=== PATIENT | female | born 1945 | race Hispanic/Latino ===

== ENCOUNTER 2022-05-01 08:50 | Day surgery (SDC) | payer MEDICARE ==
[2022-05-01] MEDS ORDERED: ASPIRIN 325 MG TAB PO ONE (09:48)
[2022-05-01] MEDS ORDERED: ASPIRIN EC 325 MG TAB PO ONE (09:48)
[2022-05-01 09:54] LABS: Basophils # (Auto) 0.1 K/mm3 (0.0-0.1); Basophils % (Auto) 0.8 % (0.0-1.8); Eosinophils # (Auto) 0.2 K/mm3 (0.0-0.4); Eosinophils % (Auto) 2.6 % (0.0-4.3); Hematocrit 35.2 % (30.3-42.9); Hemoglobin 12.5 gm/dl (10.1-14.3); Lymphocytes # (Auto) 1.5 K/mm3 (1.2-5.4); Lymphocytes % (Auto) 21.9 % (13.4-35.0); Mean Corpuscular HGB Conc 36 % (30-34); Mean Corpuscular Volume 88 fl (79-97); Monocytes # (Auto) 0.8 K/mm3 (0.0-0.8); Monocytes % (Auto) 11.5 % (0.0-7.3); Platelet Count 256 K/mm3 (140-440); Red Blood Count 3.99 M/mm3 (3.65-5.03); Red Cell Distribution Width 12.3 % (13.2-15.2)
[2022-05-01] MEDS: SODIUM CHLORIDE 0.9% 500 ML 500 ML IV SCH ×3 (09:55→11:30)
[2022-05-01] MEDS ORDERED: ASPIRIN 81 MG TAB CHEW PO SCH (10:00)
[2022-05-01 10:04] LABS: Calcium 9.9 mg/dL (8.4-10.2)
[2022-05-01 10:06] LABS: INR 0.96 (0.87-1.13)
[2022-05-01] MEDS ORDERED: HEPARIN 10,000 UNITS/10 ML VIAL ONE (10:51)
[2022-05-01] MEDS ORDERED: POTASSIUM CHLORIDE ER 20 MEQ TAB PO SCH (11:00)
[2022-05-01] MEDS: MIDAZOLAM 2 MG/2 ML INJ ONE ×2 (11:21→11:36)
[2022-05-01] MEDS: fentaNYL 100 MCG/2 ML INJ ONE ×3 (11:21→11:40)
[2022-05-01] MEDS: LIDOCAINE (1%) 10 MG/1 ML VIAL 20 ML MDV ONE ×3 (11:22→11:44)
[2022-05-01] MEDS ORDERED: VERAPAMIL 5 MG/2 ML INJ ONE (11:25)
[2022-05-01] MEDS: HEPARIN/NS 5000 UNIT/500ML 1,000 ML IR ONE ×2 (11:29→11:45)
[2022-05-01] MEDS ORDERED: hydrALAZINE 20 MG/1 ML INJ ONE (11:56)
--- NOTE | 2022-05-01 12:20 | Cardiac Catherization Report ---
DATE OF SERVICE: 05/01/2022 PROCEDURE: Left heart catheterization. CLINICAL INFORMATION: This is a 76-year-old female with recurrent chest pain and shortness of breath with exertion. The patient cannot take Imdur. Negative stress test and echo. Symptoms suggestive of angina, is here for left heart catheterization. DESCRIPTION OF PROCEDURE: Procedure was done via the right common femoral artery, sterile technique and local anesthesia, 5-Bangladeshi groin sheath inserted. Unable to use radial approach. Done with moderate sedation started 11:36 finished at 11:56 with 20 minutes of moderate sedation. Left system engaged with JL3.5 catheter. Left main is large and patent, and bifurcates into medium caliber LAD. The distal LAD is a small caliber vessel. Diagonal 1, diagonal 2 small caliber vessel, patent. Circumflex medium caliber vessel in the AV groove, codominant vessel, was patent. OM1, OM2 are medium caliber vessels patent. RCA is a medium caliber to large caliber vessel, patent. PDA is a medium caliber vessel, is patent. LV gram done in SOMALI and ESQUIVEL view shows normal LV function. LVEDP 22 mmHg, LV is 200. Aortic is 200/70. No gradient across the aortic valve on pullback. The 5-Bangladeshi catheters over a guidewire. The 5-Bangladeshi groin sheath discontinued, manual pressure held. No hematoma, no bleeding. SUMMARY: Normal coronaries. Left main patent, LAD patent, small distal LAD, circumflex patent, codominant vessel, RCA patent, PDA patent with normal LV function. Medical management. TID: [id number] RECEIPT: [id number] WERO/FLORIDALMA
[2022-05-01] MEDS ORDERED: HYDROcodone/ACETAMINOPHEN 5-325 MG TAB PO PRN (13:00)
[2022-05-01] MEDS ORDERED: traMADol 50 MG TAB PO PRN (13:00)
--- NOTE | 2022-05-01 13:18 | Short Stay Summary ---
Short Stay Documentation Date of service: 05/01/22 - History H&P: obtained from office - Allergies and Medications Current Medications: Allergies Sulfa (Sulfonamide Antibiotics) Allergy (Verified 07/11/15 13:56) Unknown Home Medications Medication Instructions Recorded Confirmed Last Taken Type Hydroxyzine HCl [hydrOXYzine] 25 mg PO DAILY 05/01/22 05/01/22 04/30/22 History 25 mg Levothyroxine [Synthroid] 75 mcg PO DAILY 05/01/22 05/01/22 04/30/22 History 75 mcg Pantoprazole [Protonix TAB] 40 mg PO 05/01/22 05/01/22 04/30/22 History 40 mg Simvastatin 40 mg PO DAILY 05/01/22 05/01/22 04/30/22 History 40 mg Triamterene/Hydrochlorothiazid 1 cap PO QDAY 05/01/22 05/01/22 04/30/22 History [Triamterene-Hctz 37.5-25 mg Cp] 1 cap amLODIPine 5 mg PO DAILY 05/01/22 05/01/22 04/30/22 History 5 mg clonazePAM [KlonoPIN] 0.5 mg PO QPM 05/01/22 05/01/22 04/30/22 History 0.5mg traMADoL [Ultram 50 MG tab] 50 mg PO DAILY 05/01/22 05/01/22 04/30/22 History 50 mg Active Medications Hydrocodone Bitart/Acetaminophen (Hydrocodone/Acetaminophen 5-325 Mg Tab) 1 each PO Q4H PRN PRN Reason: Pain, Moderate (4-6) Sodium Chloride (Nacl 0.9% 500 Ml) 500 mls @ 50 mls/hr IV DIRECT PIETRO Stop: 05/01/22 19:59 Last Admin: 05/01/22 11:30 Dose: 50 mls/hr Potassium Chloride (Potassium Chloride Er 20 Meq Tab) 20 meq PO ONCE@1100 PIETRO Stop: 05/01/22 14:00 Last Admin: 05/01/22 12:30 Dose: 20 meq Tramadol HCl (Tramadol 50 Mg Tab) 50 mg PO Q4H PRN PRN Reason: Pain, Mild (1-3) - Brief post op/procedure progress note Date of procedure: 05/01/22 Pre-op diagnosis: Chest pain Post-op diagnosis: same (Found to have normal coronary) Anesthesia: local Estimated blood loss: minimal - Hospital course Hospital course: Patient presents for cardiac cath due to recurrent chest pain. Patient tolerated procedure well with no complications. Patient was found to have normal coronaries. Patient will be discharged home with prescription for Ranexa. Plan of care discussed with patient - Disposition Condition at discharge: Good Disposition: 01 HOME / SELF CARE / HOMELESS - Discharge Diagnoses (1) HTN (hypertension) Status: Acute (2) Mitral regurgitation Status: Acute (3) Chronic venous insufficiency Status: Acute (4) Hyperlipidemia Status: Acute Short Stay Discharge Plan Activity: advance as tolerated Diet: low fat, low cholesterol, low salt Wound: keep clean and dry, per your surgeon's advice Follow up with: ELLIOTT VALDES PA [Primary Care Provider] - 7 Days YADI ALCANTAR MD [Staff Physician] - 05/30/22 11:15 am (05/30/2022 at 11:15 AM in our [place] location. Phone #[phone])
[2022-05-01 15:45] VITALS: BP 125/53
--- NOTE | 2022-05-02 13:44 | Electrocardiograph Report ---
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
== END 2022-05-01 16:30 | disposition home or self-care (01) ==
LOC: CATHLABREC 08:50
PROVIDERS: ATTEND Internal Medicine
DX: R07.89 Other chest pain (principal); R06.02 Shortness of breath; I10 Essential (primary) hypertension; I34.0 Nonrheumatic mitral (valve) insufficiency; I87.2 Venous insufficiency (chronic) (peripheral); E78.5 Hyperlipidemia, unspecified; M19.90 Unspecified osteoarthritis, unspecified site; Z90.710 Acquired absence of both cervix and uterus; Z88.2 Allergy status to sulfonamides; Z79.899 Other long term (current) drug therapy; Z98.890 Other specified postprocedural states; Z98.49 Cataract extraction status, unspecified eye
CPT/HCPCS: 36415; 80048; 85025; 85610; 93005; 93458; 99156; C1894; J0360; J1644; J2250; J3010; J7040; Q9967